=== PATIENT | male | born 1935 | race African-American/Black ===

== ENCOUNTER 2019-09-16 15:29 | Emergency (ER) | payer MEDICARE ==
[~2019-09-16] VITALS: Ht 180.3 cm; Wt 82.0 kg
[2019-09-17] MEDS ORDERED: CLONIDINE 0.1MG TABLET PO ONE (19:15)
[2019-09-17] MEDS ORDERED: AMLODIPINE 5MG TABLET PO ONE (19:15)
[2019-09-18 03:42] VITALS: BP 144/90
== END 2019-09-18 13:35 | disposition home or self-care (01) ==
LOC: ER 15:29
DX: L97.929 Non-pressure chronic ulcer of unspecified part of left lower leg with unspecified severity (principal); L97.919 Non-pressure chronic ulcer of unspecified part of right lower leg with unspecified severity; J45.909 Unspecified asthma, uncomplicated; I10 Essential (primary) hypertension; E11.9 Type 2 diabetes mellitus without complications
CPT/HCPCS: 99285